=== PATIENT | male | born 1990 | race Two or more races ===

== ENCOUNTER 2017-03-03 19:51 | Emergency (ER) | payer OTHER ==
[~2017-03-03] VITALS: Ht 172.7 cm; Wt 61.2 kg
[2017-03-03] MEDS ORDERED: NKM (20:05)
[2017-03-03] MEDS ORDERED: Tetanus/Diptheria/Pertussis Vaccine 0.5ml Syr IM ONE (20:45)
[2017-03-03 21:27] VITALS: BP 122/74
--- NOTE | 2017-03-04 15:04 | Emergency Room Report ---
History of Present Illness General Chief Complaint: Laceration Source: Patient Present Illness HPI 26-year-old male presents ED status post laceration. States that he cut his right fourth digit using a student at work today. Notes bleeding. Tetanus unknown. Denies any pain. Denies any other injuries. No other aggravating relieving factors. Denies any other says the symptoms Allergies: Coded Allergies: No Known Allergies (Unverified , 03/03/17) Patient History Past Medical History: none Past Surgical History: none Pertinent Family History: none Social History: Denies: smoking, alcohol use, drug use Immunizations: UTD Reviewed Nursing Documentation: PMH: Agreed, PSxH: Agreed Nursing Documentation-PMH Past Medical History: No Stated History Review of Systems All Other Systems: negative except mentioned in HPI Physical Exam Vital Signs Date Time Temp Pulse Resp B/P (MAP) Pulse Ox O2 Delivery O2 Flow Rate FiO2 03/03/17 20:02 97.7 77 18 114/80 99 Room Air Sp02 EP Interpretation: reviewed, normal General Appearance: no apparent distress, alert, GCS 15, non-toxic Head: normocephalic, atraumatic Eyes: bilateral eye normal inspection, bilateral eye PERRL ENT: hearing grossly normal, normal pharynx, no angioedema, normal voice Neck: full range of motion, supple/symm/no masses Respiratory: chest non-tender, lungs clear, normal breath sounds, speaking full sentences Cardiovascular #1: regular rate, rhythm, no edema Cardiovascular #2: 2+ carotid (R), 2+ carotid (L), 2+ radial (R), 2+ radial (L) , 2+ dorsalis pedis (R), 2+ dorsalis pedis (L) Gastrointestinal: normal bowel sounds, non tender, soft, non-distended, no guarding, no rebound Rectal: deferred Genitourinary: normal inspection, no CVA tenderness Musculoskeletal: back normal, gait/station normal, normal range of motion Neurologic: alert, oriented x3, responsive, motor strength/tone normal, sensory intact, speech normal Psychiatric: judgement/insight normal, memory normal, mood/affect normal, no suicidal/homicidal ideation Reflexes: 3+ bicep (R), 3+ bicep (L), 3+ tricep (R), 3+ tricep (L), 3+ knee (R) , 3+ knee (L) Skin: other - R 4th digit skin avulsion. bleeding noted Lymphatic: no adenopathy Medical Decision Making Diagnostic Impression: Primary Impression: Skin avulsion ER Course Hospital Course 26-year-old male presents ED with skin avulsion to the right fourth digit Clinical course Patient placed on stretcher. After initial history and physical I ordered tetanus shot. Wound irrigated. Pressure dressing applied with bleeding controlled. Diagnosis - skin avulsion Stable and discharged to home. wound Care instructions given. Followup with PMD. Return to ED if any signs of infection develop Last Vital Signs Date Time Temp Pulse Resp B/P (MAP) Pulse Ox O2 Delivery O2 Flow Rate FiO2 03/03/17 21:27 97.7 66 18 122/74 100 Room Air Status: improved Disposition: HOME, SELF-CARE Condition: Stable Referrals: NOT CHOSEN [facility]/MD,REFERRING (PCP) Departure Forms: Return to Work Return to Work Date: Mar 04, 2017 Work Restrictions: None Patient Instructions: Deep Skin Avulsion JOSEPH DAMON M.D. Mar 04, 2017 15:04
== END 2017-03-03 21:27 | disposition home or self-care (01) ==
LOC: EMR 20:28
DX: S61.214A Laceration without foreign body of right ring finger without damage to nail, initial encounter (principal); W27.4XXA Contact with kitchen utensil, initial encounter; Y92.59 Other trade areas as the place of occurrence of the external cause; Y99.0 Civilian activity done for income or pay; Z23 Encounter for immunization
CPT/HCPCS: 90471; 90715; 99283